=== PATIENT | female | born 1995 | race Caucasian/White ===

== ENCOUNTER 2022-06-30 13:58 | Emergency (ER) | payer BC, SELFPAY ==
[2022-06-30 14:05] VITALS: BP 139/80; PULSE 120; RESP 18; TEMP 37.8; O2SAT 99; BMI 30.7
--- NOTE | 2022-06-30 14:36 | XR_ITS ---
FINAL REPORT CLINICAL HISTORY: COUGH FINDINGS: CHEST TWO-VIEW Subtle vague opacity in the right lung base suspicious for mild pneumonia. Left lung is clear. There is no evidence of effusion or other pleural disease. The mediastinum as a normal appearance. The cardiac silhouette is unremarkable. IMPRESSION: Vague right base opacity suspicious for mild pneumonia. Reviewed, Interpreted and Dictated by Milton Barboza MD Transcribed by Grzegorz Britton Authenticated and . [facility]
[2022-06-30 14:56] LABS: Basophils # 0.1 K/mm3 (0-0.2); Basophils % 0.7 % (0.1-2.0); Eosinophils # 0.3 K/mm3 (0.0-0.4); Eosinophils % 2.6 % (0.1-12.0); Hematocrit 40.5 % (37.0-47.0); Hemoglobin 13.4 g/dL (12.2-16.2); Lymphocytes % 15.4 % (10-50); Mean Corpuscular HGB Conc 32.9 g/dL (31.8-35.4); Mean Corpuscular Hemoglobin 26.7 pg (27.0-31.2); Mean Corpuscular Volume 80.9 fl (81-99); Mean Platelet Volume 8.3 fl (7.4-10.4); Monocytes # 0.5 K/mm3 (0.1-1.0); Neutrophils # 10.1 K/mm3 (1.8-7.8); Neutrophils % 77.3 % (37.0-80.0); Platelet Count 343 K/mm3 (142-424); Red Blood Count 5.01 M/mm3 (4.20-5.40); Red Cell Distribution Width 13.8 % (11.5-17.5); White Blood Count 13.1 K/mm3 (4.8-10.8)
[2022-06-30 15:01] LABS: Chloride 103 mmol/L (98-107); Sodium 139 mmol/L (136-145)
[2022-06-30 15:02] LABS: Potassium 4.4 mmoL/L (3.5-5.1)
[2022-06-30 15:04] LABS: Alanine Aminotransferase 49 U/L (12-78); Alkaline Phosphatase 92 U/L (38-126); Aspartate Amino Transferase 42 U/L (14-36); Bilirubin,Total 0.4 mg/dl (0.2-1.3); Blood Urea Nitrogen 4 mg/dl (7-17); Creatinine Clearance Estimated 160 mL/min (50-200); Estimated Glomerular Filt Rate 87 ml/min (>60); GFR (African American) 106 ML/MIN (>60)
[2022-06-30 15:05] LABS: Albumin Level 4.6 g/dl (3.5-5.0); Albumin/Globulin Ratio 1.2 (1.1-1.8); Anion Gap 14.4 mEq/L (5-15); Calcium 9.3 mg/dl (8.4-10.2); Carbon Dioxide 26 mmol/L (22.0-30.0); Globulin 3.9 g/dL (1.3-3.2); Glucose 93 mg/dl (74-100); Total Protein,Serum 8.5 g/dl (6.3-8.2)
[2022-06-30 15:09] LABS: HCG Qualitative, Serum Negative (Negative)
--- NOTE | 2022-06-30 15:25 | PC.NURSE ---
PT TO XR
[2022-06-30 15:43] LABS: Coronavirus 19, PCR Not Detected (NotDetected); Influenza A, PCR Not Detected (NotDetected); Influenza B, PCR Not Detected (NotDetected)
--- NOTE | 2022-06-30 15:45 | HMH.EDGENADL ---
Discharge Plan Disposition Patient Disposition: Home, Self-Care Condition: Good Prescriptions Prescriptions: New azithromycin [Zithromax] 250 mg tablet 250 mg PO DAILY 4 Days Qty: 4 0RF Rx Instructions: start on day 2 of therapy cefdinir 300 mg capsule 300 mg PO BID 10 Days Qty: 20 0RF Referrals Follow up/Referrals: Provider,Referral, [Primary Care Provider] - See instructions Activity Restrictions/Add. Instructions Additional Instructions/Restrictions: Stop taking amoxicillin. Start taking Omnicef and Zithromax. Full respiratory panel result is pending. Call the emergency department tomorrow morning for results. Continue Tylenol and ibuprofen for fever and pain. Return if worsening shortness of breath or uncontrollable vomiting Clinical Impressions Clinical Impression: Community acquired pneumonia, Bilateral conjunctivitis Instructions Patient Instructions: DI for Pneumonia -- Adult, DI for Conjunctivitis Discharge ED Provider: Antnoi Alexander Adult HPI General Stated complaint: SOA Time Seen by Provider: 06/30/22 17:04 Mode of Arrival: Ambulatory Source of Information: Patient Limitations: No Limitations Description of Symptoms (Recalled from ER Triage Doc. by RN): PT WITH C/O COUGH , FEVER, DIARRHEA AND DIFFICULTY TAKING A DEEP BREATH SINCE WEDNESDAY. 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 History of Present Illness HPI narrative: Patient states that she has been sick since 5 days ago. She has a cough, nonproductive. She says it is hard to take a deep breath because it hurts. She has had fevers up to 104 degrees. She states she was seen at [facility] and had a strep, COVID, and flu swab that were negative. She says however that she was started on amoxicillin for possible strep. She developed diarrhea after starting amoxicillin. She is sent to the emergency department for persistent symptoms. No known exposures. She also has bilateral conjunctivitis, started in her right eye but now has spread to the left. She is on antibiotic eyedrops from [facility]. Related Data Previous Rx's Medication Instructions Recorded azithromycin 250 mg tablet 250 mg PO DAILY 4 days #4 tabs 06/30/22 (Zithromax) cefdinir 300 mg capsule 300 mg PO BID 10 days #20 caps 06/30/22 Allergies Allergy/AdvReac Type Severity Reaction Status Date / Time No Known Allergies Allergy Verified 06/30/22 14:27 [facility] Disclaimer: The information contained in this section may have been updated after the patient was seen, as this information can be updated by other users. Social History Smoking Status: Never smoker ROS Obtained: Yes Systems reviewed as appropriate & no additional complaints except as documented Constitutional Constitutional: Reports body ache, Reports fever(s), Reports headache(s) and Denies weakness ENT Ears, Nose, Mouth, and Throat: Reports headache(s), Denies nasal discharge and Reports sore throat Cardiovascular Cardiovascular: Reports chest pain Respiratory Respiratory: Denies shortness of breath and Reports cough Gastrointestinal Gastrointestingal: Reports diarrhea; Denies abdominal pain, constipation or vomiting Genitourinary Female Genitourinary: Denies difficulty voiding, Denies dysuria and Denies flank pain Musculoskeletal Musculoskeletal: Denies numbness Neurologic Neurologic: Reports headache(s), Denies numbness and Denies weakness Physical Exam General General appearance: alert and in no apparent distress Head Head exam: atraumatic and normocephalic Eye Eye exam: Present normal appearance, EOMI and conjunctival injection (Bilateral); Absent discharge ENT ENT exam: Present normal oropharynx, mucous membranes moist and TM's normal bilaterally Neck Neck exam: Present normal inspection and trachea midline; Absent meningismus or lymphadenopathy Chest Chest inspection: Present normal inspection a
[2022-06-30 16:03] LABS: Lactic Acid 0.7 mmol/L (0.7-2.1)
--- NOTE | 2022-06-30 16:13 | PC.NURSE ---
PT TO BR FOR UA
[2022-06-30 16:57] LABS: Microscopic, Urine URINE MICROSCOPIC (MICROSCOPIC)
[2022-06-30 17:01] LABS: Appearance,Urine CLEAR (Clear); Bilirubin,Urine Negative (Negative); Blood, Urine 1+ (Negative); Color,Urine YELLOW (Yellow); Glucose,Urine (UA) Negative (Negative); Ketones,Urine Negative (Negative); Leukocyte Esterase,Urine Negative (Negative); Nitrate,Urine Negative (Negative); Protein,Urine Negative (Negative); Specific Gravity, Urine <= 1.005 (1.005-1.030); Urobilinogen,Urine 0.2 EU/dl (0.2)
[2022-06-30 17:20] LABS: RBC,Urine Occasional #/hpf (0-3); WBC,Urine Occasional #/hpf (0-3)
--- NOTE | 2022-06-30 17:29 | PC.NURSE ---
MEDICATED PER EMAR, NO NEEDS AT THIS TIME
[2022-06-30 18:23] VITALS: BP 138/79; PULSE 110; RESP 18; TEMP 37.2; O2SAT 99
== END 2022-06-30 18:24 | disposition home or self-care (01) ==
PROVIDERS: Emergency Provider Emergency Medicine
DX: J18.9 Pneumonia, unspecified organism (principal); H10.33 Unspecified acute conjunctivitis, bilateral; Z20.822 Contact with and (suspected) exposure to COVID-19
CPT/HCPCS: 71046; 80053; 81001; 83605; 84703; 85025; 87040; 99285; C9803; J0456; J0696; U0003; U0005